=== PATIENT | female | born 1980 | race American Indian/Alaskan Native ===

== ENCOUNTER 2020-12-30 10:55 | Emergency (ER) | payer OTHER ==
[2020-12-30] MEDS ORDERED: hydroCHLOROthiazide 25 MG TAB PO ONE (11:29)
[2020-12-30] MEDS ORDERED: cloNIDine 0.1 MG TAB PO ONE (11:29)
--- NOTE | 2020-12-30 11:33 | Emergency Department Report ---
ED General Adult HPI - General Chief complaint: High BP Stated complaint: HIGH BLOOD PRESSURE PUI?: No Time Seen by Provider: 12/30/20 11:29 Source: patient Mode of arrival: Ambulatory Limitations: No Limitations - History of Present Illness Initial comments: Patient is a 40-year-old -[place] female that was sent to us by her DIRECTOR OF ONCOLOGY because she had an elevated blood pressure. She went to her DIRECTOR OF ONCOLOGY for her routine Pap smear and mammogram, but it was noted that her blood pressure was 220/149 and 226/132. Patient has no history of hypertension. She does smoke and is mildly obese. Patient denies any headache, dizziness, chest pain or shortness of breath. She denies ever having been told that she had hypertension. She is ambulatory and [id number] on arrival to [facility] -: Gradual, month(s) Associated Symptoms: denies other symptoms Treatments Prior to Arrival: none - Related Data Previous Rx's Medication Instructions Recorded Last Taken Type Lisinopril/Hydrochlorothiazide 1 tab PO QDAY #30 tab 12/30/20 Unknown Rx [Zestoretic 20-12.5 mg] Allergies Allergy/AdvReac Type Severity Reaction Status Date / Time No Known Allergies Allergy Verified 12/30/20 11:13 ED Review of Systems ROS: Stated complaint: HIGH BLOOD PRESSURE Other details as noted in HPI Comment: All other systems reviewed and negative ED Past Medical Hx - Past Medical History Previous Medical History?: Yes Additional medical history: OBESE - Surgical History Past Surgical History?: No - Family History Family history: no significant - Social History Smoking Status: Current Every Day Smoker Substance Use Type: None - Medications Home Medications: Home Medications Medication Instructions Recorded Confirmed Last Taken Type Lisinopril/Hydrochlorothiazide 1 tab PO QDAY #30 tab 12/30/20 Unknown Rx [Zestoretic 20-12.5 mg] ED Physical Exam - General Limitations: No Limitations General appearance: alert, in no apparent distress - Head Head exam: Present: atraumatic, normocephalic - Eye Eye exam: Present: normal appearance - ENT ENT exam: Present: mucous membranes moist - Neck Neck exam: Present: normal inspection - Respiratory Respiratory exam: Present: normal lung sounds bilaterally. Absent: respiratory distress - Cardiovascular Cardiovascular Exam: Present: regular rate, normal rhythm. Absent: systolic murmur, diastolic murmur, rubs, gallop - GI/Abdominal GI/Abdominal exam: Present: soft, normal bowel sounds - Extremities Exam Extremities exam: Present: normal inspection - Back Exam Back exam: Present: normal inspection - Neurological Exam Neurological exam: Present: alert, oriented X3 - Psychiatric Psychiatric exam: Present: normal affect, normal mood - Skin Skin exam: Present: warm, dry, intact, normal color. Absent: rash ED Course Vital Signs 12/30/20 12/30/20 12/30/20 11:15 12:23 13:50 Temperature 98.3 F Pulse Rate 82 99 H Respiratory 18 Rate Blood Pressure 241/122 227/122 Blood Pressure 202/118 [Left] O2 Sat by Pulse 97 Oximetry - Reevaluation(s) Reevaluation #1: 12/30/20 14:13 202/100 BY PROVIDER WITH MANUAL CUFF 12/30/20 14:[address] Monreal On reexam patient denies any headache, chest pain or shortness of breath. Blood pressure is trending down. ED Medical Decision Making - Lab Data Result diagrams: 12/30/20 11:40 12/30/20 11:40 - Medical Decision Making Lab Results 12/30/20 12/30/20 Range/Units 11:40 11:40 WBC 9.1 (4.5-11.0) K/mm3 RBC 4.51 (3.65-5.03) M/mm3 Hgb 14.5 H (10.1-14.3) gm/dl Hct 42.2 (30.3-42.9) % MCV 94 (79-97) fl MCH 32 (28-32) pg MCHC 34 (30-34) % RDW 12.7 L (13.2-15.2) % Plt Count 300 (140-440) K/mm3 Sodium 140 (137-145) mmol/L Potassium 3.6 (3.6-5.0) mmol/L Chloride 103.7 (98-107) mmol/L Carbon Dioxide 28 (22-30) mmol/L Anion Gap 12 mmol/L BUN 13 (7-17) mg/dL Creatinine 0.8 (0.6-1.2) mg/dL Estimated GFR > 60 ml/min BUN/Creatinine Ratio 16 % Glucose 82 (65-100) mg/dL Calcium 9.0 (8.4-10.2) mg/dL Vital Signs 12/30/20 12/30/20 12/30/20 11:15 12:23 13:50 Temperature 98.3 F Pulse Rate 82 99 H Respiratory 18 Rate Blood Pressure 241/122 227/122 Blood Pressure 202/118 [Left] O2 Sat by Pulse 97 Oximetry Labs noted. No end organ failure Patient denies any chest pain, shortness of breath or headache on discharge. BY VINEET ON D/C Patient being discharged home with lifestyle changes that she can make to control her blood pressure including diet activity and drinking water. I have also given her lisinopril/HCTZ. She has detailed instructions on monitoring her blood pressure and follow-up with primary care next week to make sure she is responding. Patient verbalizes understanding of discharge plan of care including the importance of follow-up. - Differential Diagnosis HTN new onset Critical care attestation.: If time is entered above; I have spent that time in minutes in the direct care of this critically ill patient, excluding procedure time. ED Disposition Clinical Impression: Hypertension Disposition: DC-01 TO HOME OR SELFCARE Is pt being admited?: No Does the pt Need Aspirin: No Condition: Stable Instructions: Preventing Hypertension, Managing Your Hypertension, Hyper tension, Adult, Hypertension (ED) Additional Instructions: ELIMINATE SALT AND PROCESSED FOODS FROM YOUR DIET STAY WELL HYDRATED WITH WATER STOP SMOKING EXERCISE DAILY FOLLOW UP WITH PCP IN 1 WEEK FOR RECHECK TAKE YOUR BP DAILY AT THE SAME TIME OF DAY, IN THE SAME ARM, USING THE SAME CUFF== AND RECORD THE MEASUREMENT TAKE THIS LOG TO YOUR APPNT SO THE MD CAN ADJUST YOUR MEDICATIONS NEEDED Prescriptions: Lisinopril/Hydrochlorothiazide [Zestoretic 20-12.5 mg] 1 tab PO QDAY #30 tab Referrals: JENY DIAMOND MD [Staff Physician] - 3-5 Days Time of Disposition: 13:20
[2020-12-30 12:16] LABS: Hematocrit 42.2 % (30.3-42.9); Hemoglobin 14.5 gm/dl (10.1-14.3); Mean Corpuscular HGB Conc 34 % (30-34); Mean Corpuscular Volume 94 fl (79-97); Platelet Count 300 K/mm3 (140-440); Red Blood Count 4.51 M/mm3 (3.65-5.03); Red Cell Distribution Width 12.7 % (13.2-15.2)
[2020-12-30 12:26] LABS: BUN/Creatinine Ratio 16; Blood Urea Nitrogen 13 mg/dL (7-17); Hemolysis Index 5
[2020-12-30 13:51] VITALS: BP 202/118
== END 2020-12-30 15:00 | disposition home or self-care (01) ==
LOC: ED 10:55
DX: I10 Essential (primary) hypertension (principal); E66.9 Obesity, unspecified; F17.200 Nicotine dependence, unspecified, uncomplicated; Z68.35 Body mass index [BMI] 35.0-35.9, adult; Z79.899 Other long term (current) drug therapy
CPT/HCPCS: 36415; 80048; 85027